=== PATIENT | female | born 1960 | race Caucasian/White ===

== ENCOUNTER → 2021-08-24 | Day surgery (SDC) | payer OTHER ==
[~2021-08-24] VITALS: Ht 150 cm; Wt 52.6 kg
[~2021-08-24] MED LIST: CHILDREN'S ASPI81 MG PO; FEOSOL325 MG PO; IBUPROFEN200 M1 PO; LOMOTIL1 EACH PO; MEDROL 4MG DOSEP4 MG PO; PERCOCET 5-3251 EACH PO; TRAMADOL HCL50 MG PO
== END | disposition home or self-care (01) ==
LOC: FAS 06:44
DX: M76.9 Unspecified enthesopathy, lower limb, excluding foot (principal); Z79.82 Long term (current) use of aspirin; Z79.899 Other long term (current) drug therapy
CPT/HCPCS: J2250; J2704; J2795; J7120